=== PATIENT | male | born 1945 | race Caucasian/White ===

== ENCOUNTER → 2022-03-27 10:33 | Outpatient (BNVA) | payer MEDICARE, SELFPAY | PROVIDERS: Visit Provider Psychiatry & Neurology Neurology | DX: R26.81 Unsteadiness on feet (principal); G62.9 Polyneuropathy, unspecified; Z85.71 Personal history of Hodgkin lymphoma; Z92.21 Personal history of antineoplastic chemotherapy; Z95.5 Presence of coronary angioplasty implant and graft; Z95.828 Presence of other vascular implants and grafts | CPT/HCPCS: 99202 ==